=== PATIENT | male | born 1995 | race Two or more races ===

== ENCOUNTER 2025-04-04 19:47 | Emergency (ER) | payer MEDICAID, OTHER ==
[~2025-04-04] VITALS: Ht 167.6 cm; Wt 93.3 kg
--- NOTE | 2025-04-04 21:00 | ED.PDOC ---
History of Present Illness(SKN HPI Comments This is a 29 year old male presenting to the ED with chief complaint of abscess. Patient reports that he has been experiencing a chronic abscess to the back of his neck for the past 9 months, worsening over the past 4 days. Patient denies any fever, chills, drainage, or bleeding. Chief Complaint: Abscess Time Seen by MD: 20:57 History of Present Illness: Nurses Notes, Medications, Allergies Allergies: Coded Allergies: NO KNOWN ALLERGIES (Unverified , 04/04/25) Home Meds Active Scripts Sulfamethoxazole W/Trimethopri (Bactrim Ds Tablet) 1 Tab Tb, 1 TAB PO BID for 7 Days, #14 TAB Prov:HANNAH GOLDSTEIN JUDICIAL ASSISTANT 04/04/25 Information Source: Patient Mode of Arrival: Ambulatory Severity: Mild Timing: Months Duration: Since onset Prehospital treatment: None Location: Neck Mechanism: Spontaneous Onset Object: None Condition of Object: None Retained Foreign Body: No Wound Type: Abscess Immunization Status of Animal: NA Tetanus: Unknown Past Medical History PAST MEDICAL HISTORY: Denies Surgical History: Denies all surgeries Family History Family History: Reviewed,noncontributory to illness Social History Smoker: Non-Smoker Alcohol: Denies ETOH Use Drugs: Denies Drug Use Lives In: Home Constitutional: denies: chills, diaphoresis, fatigue, fever, malaise, sweats, weakness, others EENTM: denies: blurred vision, double vision, ear bleeding, ear discharge, ear drainage, ear pain, ear ringing, eye pain, eye redness, hearing loss, mouth mihaela n, mouth swelling, nasal discharge, nose bleeding, nose congestion, nose pain, photophobia, tearing, throat pain, throat swelling, voice changes, others Respiratory: denies: cough, hemoptysis, orthopnea, SOB at rest, shortness of breath, SOB with excertion, stridor, wheezing, others Cardiovascular: denies: chest pain, dizzy spells, diaphoresis, Dyspnea on exertion, edema, irregular heart beat, left arm pain, lightheadedness, palpitations, PND, syncope, others Gastrointestinal: denies: abdomen distended, abdominal pain, blood streaked bowels, constipated, diarrhea, dysphagia, difficulty swallowing, hematemesis, melena, nausea, poor appetite, poor fluid intake, rectal bleeding, rectal pain, vomiting, others Genitourinary: denies: burning, dysuria, flank pain, frequency, hematuria, incontinence, penile discharge, penile sore, pain, testicle pain, testicle swelling, urgency, others Neurological: denies: dizziness, fainting, headache, left sided numbness, left sided weakness, numbness, paresthesia, pre-existing deficit, right sided numbness, right sided weakness, seizure, speech problems, tingling, tremors, weakness, others Musculoskeletal: denies: back pain, gout, joint pain, joint swelling, muscle pain, muscle stiffness, neck pain, others Integumetry: reports: others (Abscess to back of neck); denies: bruises, change in color, change in hair/nails, dryness, laceration, lesions, lumps, rash, wounds Allergic/Immunocompromised: denies: Difficulty Healing, Frequent Infections, Hives, Itching, others Hematologic/Lymphatic: denies: anemia, blood clots, easy bleeding, easy bruising, swollen glands, others Endocrine: denies: excessive hunger, excessive sweating, excessive thirst, excessive urination, flushing, intolerance to cold, intolerance to heat, unexplained weight gain, unexplained weight loss, others Psychiatric: denies: anxiety, bipolar disorder, depression, hopeless, panic disorder, schizophrenia, sleepless, suicidal, others All Other Systems: Reviewed and Negative Physical Exam General Appearance: No Apparent Distress, Normal HEENT: Pharynx Normal Neck: Full Range of Motion, Non-Tender Respiratory: Lungs Clear, No Respiratory Distress, Normal Breath Sounds Cardiovascular: No Murmur, Normal Peripheral Pulses, Regular Rate/Rhythm Breast Exam: Deferred Gastrointestinal: Non Tender, Soft Genitalia: Deferred Pelvic: Deferred Rectal: Deferred Extremities: Normal range of motion, Non-tender Musculoskeletal : Apperance: Normal Neurologic: Alert, No Motor Deficits, Normal Affect, Normal Mood, No Sensory Deficits Cerebellar Function: Normal Reflexes: Normal Skin: Dry, Normal Color, Warm, Wounds (Golf ball size lump posterior neck along neck line trace erythema moderate tenderness no open lesions or drainage rubbery to touch with mild fluctuance) Lymphatic: No Adenopathy Was a procedure done? Was a procedure done?: Yes Sedation Sedation?: No Incision and Drainage Incision and Drainage: Other (Sebasceous cyst) Location Neck Anesthetic: Lidocaine Preparation: Betadine, Saline Incision and Wound: Pus, Blood Informed consent obtained: Yes Risks/benefits/alt described: Yes Notes Patient tolerated well with minimal blood loss Differential Diagnosis (INTG) Differential Diagnosis: Abscess X-Ray, Labs, Meds, VS Vital Signs Date Time Temp Pulse Resp B/P (MAP) Pulse Ox O2 Delivery O2 Flow Rate FiO2 04/04/25 21:37 98.6 80 18 136/88 (104) 99 98.6 04/04/25 21:37 80 8 99 Room Air 04/04/25 19:49 98.2 83 18 131/77 97 98.2 X-Ray, Labs, Meds, VS Comment See procedure note Script trial of antibiotics likely infected sebaceous cyst. Patient take medication as prescribed side effects discussed. [id number] Tylenol or Motrin as needed for the pain per labeled dosing instructions. Advised patient to follow up with his PCP for referral to Dermatology for removal of the complete capsule for resolution. ER return precautions given patient indicates understanding agrees with discharge plan of care. Time of 1ST Reevaluation: 21:55 Reevaluation 1ST: Improved Time of 2ND Reevaluation: 22:19 Reevaluation 2ND: Improved Patient Education/Counseling: Diagnosis, Treatment Family Education/Counseling: No Family Present SEPSIS Sepsis Screen Date sepsis recognized/suspect: Apr 04, 2025 Time Sepsis recognized/suspect: 1951 Recent Procedure: No On Antibiotic Therapy: No Respiratory Rate >20: No Heart Rate >90: No Temp<36 C (96.8 F) or >38.3 C: No SBP <90 or MAP <65 mmHG: No New Acute Mental Status Change: No Is the patient on CPAP, BIPAP,: No Vital Signs Date Time Temp Pulse Resp B/P (MAP) Pulse Ox O2 Delivery O2 Flow Rate FiO2 04/04/25 21:37 98.6 80 18 136/88 (104) 99 98.6 04/04/25 21:37 80 8 99 Room Air 04/04/25 19:49 98.2 83 18 131/77 97 98.2 Departure 1 Departure Time of Disposition: 22:18 Impression: Primary Impression: Infected sebaceous cyst of skin Disposition: HOME / SELF CARE / HOMELESS Condition: Stable e-Prescriptions Sulfamethoxazole W/Trimethopri (Bactrim Ds Tablet) 1 Tab Tb 1 TAB PO BID for 7 Days, #14 TAB Prov: HANNAH GOLDSTEIN 04/04/25 Discharged With: Self Critical Care Note Critical Care Time?: No Stability Stability form required: No Heart Score Heart Score: Heart Score Response (Comments) Value History N/A 0 EKG N/A 0 Age N/A 0 Risk Factors N/A 0 Troponin N/A 0 Total 0 I personally scribed for ER ([email or web address]) on 04/04/25 at 21:00. Electronically submitted by Karlos Sutton ([email or web address]). I personally scribed for ER ([email or web address]) on 04/04/25 at 21:53. Electronically submitted by Karlos Sutton ([email or web address]). ER Apr 04, 2025 21:00 HANNAH GOLDSTEINP Apr 04, 2025 22:19
[2025-04-04 21:37] VITALS: BP 136/88; PULSE 80; RESP 8; TEMP 98.6; O2SAT 99
[2025-04-04] MEDS ORDERED: BACDST PO (22:19)
== END 2025-04-04 22:25 | disposition home or self-care (01) ==
LOC: ER 19:47
DX: L02.212 Cutaneous abscess of back [any part, except buttock and flank] (principal); L72.3 Sebaceous cyst
CPT/HCPCS: 10060